=== PATIENT | female | born 1990 | race Caucasian/White ===

== ENCOUNTER 2020-05-16 16:59 | Emergency (ER) | payer MEDICAID ==
[2020-05-16 17:36] VITALS: BP 132/78; PULSE 101
--- NOTE | 2020-05-16 18:14 | EDM.PDOC ---
ED HPI GENERAL MEDICAL PROBLEM - General Chief Complaint: Gastrointestinal Problem Stated Complaint: food posioning a couple days ago not feeling good Time Seen by Provider: 05/16/20 18:06 Source of Information: Reports: Patient, RN Notes Reviewed History Limitations: Reports: No Limitations - History of Present Illness INITIAL COMMENTS - FREE TEXT/NARRATIVE: 29-year-old female presents emergency department a complaint of crampy abdominal pain, she states she had eaten out for dinner a couple of days ago approximately 30 minutes after eating she got a bad case nausea vomiting diarrhea fevers chills crampy abdominal pain. 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: Psychiatric History: Reports: Depression - Infectious Disease History Infectious Disease History: Reports: Hepatitis C - Past Surgical History HEENT Surgical History: Reports: Adenoidectomy, Tonsillectomy Social & Family History - Tobacco Use Tobacco Use Status *Q: Current Every Day Tobacco User Years of Tobacco use: 15 Packs/Tins Daily: 0.5 - Caffeine Use Caffeine Use: Reports: Coffee - Recreational Drug Use Recreational Drug Use: No ED ROS GENERAL - Review of Systems Review Of Systems: See Below Constitutional: Reports: Fever, Chills HEENT: Reports: No Symptoms Respiratory: Reports: No Symptoms Cardiovascular: Reports: No Symptoms GI/Abdominal: Reports: Abdominal Pain, Diarrhea, Nausea, Vomiting : Reports: No Symptoms ED EXAM, GI/ABD - Physical Exam Exam: See Below Exam Limited By: No Limitations General Appearance: Alert, WD/WN, No Apparent Distress Respiratory/Chest: No Respiratory Distress, Lungs Clear, Normal Breath Sounds, No Accessory Muscle Use, Chest Non-Tender Cardiovascular: Regular Rate, Rhythm, No Murmur GI/Abdominal Exam: Soft, Non-Tender Course - Vital Signs Last Recorded V/S: Last Vital Signs Temp 97.4 F 05/16/20 17:54 Pulse 101 H 05/16/20 17:54 Resp 16 05/16/20 17:54 BP 132/78 05/16/20 17:54 Pulse Ox 97 05/16/20 17:54 - Orders/Labs/Meds Orders: Active Orders 24 hr Category Date Time Status Abdomen 1V Upright [CR] Urgent Exams 05/16/20 18:10 Taken Labs: Laboratory Tests 05/16/20 05/16/20 05/16/20 Range/Units 18:19 18:19 18:19 WBC 3.9 L (4.5-11.0) K/uL RBC 4.35 (3.30-5.50) M/uL Hgb 12.1 (12.0-15.0) g/dL Hct 37.4 (36.0-48.0) % MCV 86 (80-98) fL MCH 28 (27-31) pg MCHC 32 (32-36) % Plt Count 280 (150-400) K/uL Neut % (Auto) 59 (36-66) % Lymph % (Auto) 30 (24-44) % Davis % (Auto) 10 H (2-6) % Eos % (Auto) 1 L (2-4) % Baso % (Auto) 1 (0-1) % Sodium 143 (140-148) mmol/L Potassium 3.7 (3.6-5.2) mmol/L Chloride 105 (100-108) mmol/L Carbon Dioxide 27 (21-32) mmol/L Anion Gap 11.4 (5.0-14.0) mmol/L BUN 13 D (7-18) mg/dL Creatinine 0.7 (0.6-1.0) mg/dL Est Cr Clr Drug Dosing 130.15 mL/min Estimated GFR (MDRD) > 60 (>60) Glucose 90 (74-106) mg/dL Lactic Acid 0.8 (0.4-2.0) mmol/L Calcium 8.7 (8.5-10.1) mg/dL Total Bilirubin 0.1 L D (0.2-1.0) mg/dL AST 25 (15-37) U/L ALT 46 (12-78) U/L Alkaline Phosphatase 97 (46-116) U/L Total Protein 7.0 (6.4-8.2) g/dL Albumin 3.5 (3.4-5.0) g/dL Globulin 3.5 (2.3-3.5) g/dL Albumin/Globulin Ratio 1.0 L (1.2-2.2) Lipase 64 L (73-393) U/L Urine Color (YELLOW) Urine Appearance (CLEAR) Urine pH (5.0-8.0) Ur Specific Henderson (1.008-1.030) Urine Protein (NEGATIVE) mg/dL Urine Glucose (UA) (NEGATIVE) mg/dL Urine Ketones (NEGATIVE) mg/dL Urine Occult Blood (NEGATIVE) Urine Nitrite (NEGATIVE) Urine Bilirubin (NEGATIVE) Urine Urobilinogen (0.2-1.0) EU/dL Ur Leukocyte Esterase (NEGATIVE) Urine RBC (0-5) Urine WBC (0-5) Ur Epithelial Cells Amorphous Sediment Urine Bacteria Urine Mucus 05/16/20 Range/Units 19:31 WBC (4.5-11.0) K/uL RBC (3.30-5.50) M/uL Hgb (12.0-15.0) g/dL Hct (36.0-48.0) % MCV (80-98) fL MCH (27-31) pg MCHC (32-36) % Plt Count (150-400) K/uL Neut % (Auto) (36-66) % Lymph % (Auto) (24-44) % Davis % (Auto) (2-6) % Eos % (Auto) (2-4) % Baso % (Auto) (0-1) % Sodium (140-148) mmol/L Potassium (3.6-5.2) mmol/L Chloride (100-108) mmol/L Carbon Dioxide (21-32) mmol/L Anion Gap (5.0-14.0) mmol/L BUN (7-18) mg/dL Creatinine (0.6-1.0) mg/dL Est Cr Clr Drug Dosing mL/min Estimated GFR (MDRD) (>60) Glucose (74-106) mg/dL Lactic Acid (0.4-2.0) mmol/L Calcium (8.5-10.1) mg/dL Total Bilirubin (0.2-1.0) mg/dL AST (15-37) U/L ALT (12-78) U/L Alkaline Phosphatase (46-116) U/L Total Protein (6.4-8.2) g/dL Albumin (3.4-5.0) g/dL Globulin (2.3-3.5) g/dL Albumin/Globulin Ratio (1.2-2.2) Lipase (73-393) U/L Urine Color Yellow (YELLOW) Urine Appearance Slightly cloudy A (CLEAR) Urine pH 6.5 (5.0-8.0) Ur Specific Henderson >= 1.030 (1.008-1.030) Urine Protein Negative (NEGATIVE) mg/dL Urine Glucose (UA) Negative (NEGATIVE) mg/dL Urine Ketones Negative (NEGATIVE) mg/dL Urine Occult Blood Negative (NEGATIVE) Urine Nitrite Negative (NEGATIVE) Urine Bilirubin Negative (NEGATIVE) Urine Urobilinogen 0.2 (0.2-1.0) EU/dL Ur Leukocyte Esterase Negative (NEGATIVE) Urine RBC 0-5 (0-5) Urine WBC 0-5 (0-5) Ur Epithelial Cells Rare Amorphous Sediment Not seen Urine Bacteria Rare Urine Mucus Moderate Meds: Medications Discontinued Medications Generic Name Dose Route Start Last Admin Trade Name Freq PRN Reason Stop Dose Admin Hyoscyamine 0.125 mg 05/16/20 18:11 05/16/20 18:19 Hyoscyamine 0.125 Mg Tab.Sl SL 05/16/20 18:12 0.125 mg ONETIME ONE Administration Departure - Departure Time of Disposition: 20:12 Disposition: Home, Self-Care 01 Condition: Fair Clinical Impression: Gastroenteritis - Discharge Information Instructions: Viral Gastroenteritis, Adult, [id number] Referrals: PCP,None [Primary Care Provider] - Forms: ED Department Discharge Additional Instructions: Continue with symptomatic care, try simethicone for abdominal relief, please followup with your primary care provider in 3-5 days if not better, please call return to the emergency department with worsening of symptoms. Sepsis Event Note (ED) - Evaluation Sepsis Screening Result: No Definite Risk - Focused Exam Vital Signs: Vital Signs Temp Pulse Resp BP Pulse Ox 05/16/20 17:54 97.4 F 101 H 16 132/78 97 05/16/20 17:30 97.4 F 101 H 16 132/78 97 - My Orders Last 24 Hours: My Active Orders 05/16/20 18:10 Abdomen 1V Upright [CR] Urgent - Assessment/Plan Last 24 Hours: My Active Orders 05/16/20 18:10 Abdomen 1V Upright [CR] Urgent Plan: Assessment Acuity = acute Site and laterality = gastroenteritis Etiology = unknown Manifestations = nausea vomiting diarrhea now resolved abdominal bloating Location of injury = Home Lab values = CBC CMP unremarkable plain film of the abdomen shows nonspecific bowel gas pattern official read radiologist pending Plan Did review lab work x-ray results with her she is going to try simethicone at home follow-up primary care 3 to 5 days if not better This note was dictated using [employer] voice recognition software please call with any questions on syntax or grammar.
[2020-05-16] MEDS: Hyoscyamine 0.125 MG Tab.SL SL ONE (18:19)
--- NOTE | 2020-05-17 08:55 | CR ---
Abdomen 1V Upright CLINICAL HISTORY: Abdominal pain FINDINGS: No free air is identified. Small intestinal configuration is nonacute. There is gas and feces in the colon Impression: Nonacute intestinal gas pattern
== END 2020-05-16 20:38 | disposition home or self-care (01) ==
LOC: JP.ED 16:59
DX: K52.9 Noninfective gastroenteritis and colitis, unspecified (principal); Z72.0 Tobacco use; Z88.0 Allergy status to penicillin; Z88.8 Allergy status to other drugs, medicaments and biological substances
CPT/HCPCS: 36415; 74018; 80053; 81001; 83605; 83690; 85025; 99283; 99284; A9270

== ENCOUNTER 2020-12-26 19:28 | Emergency (ER) | payer MEDICAID ==
[2020-12-26 20:01] VITALS: BP 115/52; PULSE 112
--- NOTE | 2020-12-26 20:08 | EDM.PDOC ---
ED HPI GENERAL MEDICAL PROBLEM - General Chief Complaint: Head Injury Stated Complaint: HEAD INJURY WITH LOSS OF CONCIOUSNESS Time Seen by Provider: 12/26/20 20:08 Source of Information: Reports: Patient History Limitations: Reports: No Limitations - History of Present Illness INITIAL COMMENTS - FREE TEXT/NARRATIVE: Patient presents to emergency room secondary to concern about head injury. Patient states that she went to sit down on a wooden chair in her kitchen when it broke underneath of her she fell back hitting her head on the corner of a cabinet she feels like she had a brief loss of consciousness she has a headache and some nausea she denies any lightheaded dizziness visual changes or concerns otherwise. She was observed to be ambulatory in the emergency room from the waiting room to her exam room without any difficulty states that she does have a lump on the back of her head that is somewhat tender in nature PMH--depression/anxiety, bipolar, mood disorder, ADHD, PTSD Meds--prozac, wellbutrin, adderal, lamictal, cloinipin prn Allergies--amox, trileptal Tob--former EtOH/Drugs--denies Patient reports having had COVID infection in Dec 2019, she has not received the COVID immunization Onset: Today Onset Time: 16:30 Head Pain Score (Numeric/FACES): 4 - Related Data Allergies Allergy/AdvReac Type Severity Reaction Status Date / Time amoxicillin [Amoxicillin] Allergy Severe Hives Verified 12/26/20 20:02 oxcarbazepine Allergy Cannot Verified 12/26/20 20:02 [From Trileptal] Remember Home Meds: Home Meds FLUoxetine HCl [Prozac] 3 tab PO DAILY 12/19/12 [History] Dextroamphetamine/Amphetamine [Adderall 10 mg Tablet] 1 tab PO ASDIRECTED 12/26/20 [History] buPROPion HCL [Bupropion Xl] 1 tab PO DAILY 12/26/20 [History] clonazePAM [Clonazepam] 1 tab PO ASDIRECTED PRN 12/26/20 [History] lamoTRIgine [Lamotrigine ER] 1 tab PO DAILY 12/26/20 [History] 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 Constitutional: Reports: No Symptoms HEENT: Reports: No Symptoms. Denies: Vertigo, Vision Change Respiratory: Reports: No Symptoms Cardiovascular: Reports: No Symptoms Endocrine: Reports: No Symptoms GI/Abdominal: Reports: Nausea. Denies: Vomiting : Reports: No Symptoms Musculoskeletal: Reports: No Symptoms Skin: Reports: No Symptoms Neurological: Reports: Headache. Denies: Confusion, Dizziness, Numbness, Seizure, Syncope, Tingling, Trouble Speaking, Difficulty Walking, Weakness, Change in Speech, Gait Disturbance Psychiatric: Reports: No Symptoms Hematologic/Lymphatic: Reports: No Symptoms Immunologic: Reports: No Symptoms ED EXAM, HEAD INJURY - Physical Exam Exam: See Below Exam Limited By: No Limitations General Appearance: Alert, WD/WN, No Apparent Distress Head: Scalp Tenderness (posterior occipital tenderness with mild swelling) Nexus Criteria: No: Posterior, Midline Cervical Tenderness, Evidence of Into xication, Altered Level of Consciousness, Focal Neurological Deficit, Painful Distraction Injuries Eyes: Bilateral Eye: EOMI, Normal Inspection, PERRL Ears: Normal External Exam, Normal Canal, Hearing Grossly Normal, Normal TMs Nose: Normal Inspection Throat/Mouth: Normal Inspection, Normal Lips, Normal Oropharynx, Normal Voice, No Airway Compromise Neck: Non-Tender, Full Range of Motion, Normal Alignment, Normal Inspection Respiratory: No Respiratory Distress, Lungs Clear, Normal Breath Sounds, No Accessory Muscle Use Cardiovascular: Normal Peripheral Pulses, Regular Rate, Rhythm, No Edema, No Murmur GI/Abdominal Exam: Normal Bowel Sounds, Soft (Female) Exam: Deferred Rectal (Female) Exam: Deferred Back Exam: Normal Inspection, Full Range of Motion Extremities: Normal Inspection, Normal Range of Motion, No Pedal Edema, Normal Capillary Refill Neurologic: head transfer clerk II-XII nml As Tested, No Motor/Sensory Deficits, Alert, Normal Mood/Affect, Oriented x 3. No: Abnormal head transfer clerk II-XII, Abnormal Gait, Aphasia, Facial Droop, Motor Weakness, Sensory Deficit Skin: Normal Color, Warm/Dry - [place] Score Best Eye Response (Cornel): (4) Open Spontaneously Best Verbal Response (Cornel): (5) Oriented Best Motor Response (Cornel): (6) Obeys Commands Course - Vital Signs Text/Narrative:: Discussed with patient home care for head injury to include observing for any behavior changes headache unrelieved by medications intractable nausea unrelieved by medication provided in the emergency room tonight. Discussed with her brain rest to include no excessive TV reading computer or phone usage. Did discuss that headache and nausea may last for several days to several weeks that it was a difficult to predict if she has any further concerns or questions and follow-up with primary care provider return to the emergency room for further evaluation of left understanding from plan of care ready for discharge Last Recorded V/S: Last Vital Signs Temp 97.9 F 12/26/20 20:01 Pulse 112 H 12/26/20 20:01 Resp 16 12/26/20 20:01 BP 115/52 L 12/26/20 20:01 Pulse Ox 98 12/26/20 20:01 Departure - Departure Time of Disposition: 20:35 Disposition: Home, Self-Care 01 Condition: Good Clinical Impression: Concussion with brief loss of consciousness, Headache, Nausea, Scalp contusion - Discharge Information *PRESCRIPTION DRUG MONITORING PROGRAM REVIEWED*: Not Applicable *COPY OF PRESCRIPTION DRUG MONITORING REPORT IN PATIENT NICKY: Not Applicable Instructions: Head Injury, Adult, [id number], Facial or Scalp Contusion, [id number], Post-Concussion Syndrome, [id number] Referrals: Lucia Ayala PA-C [Primary Care Provider] - Forms: ED Department Discharge Additional Instructions: As discussed if you have any change of behavior increasing irritability headache unrelieved by acetaminophen (Tylenol) vomiting unrelieved by ondasetron (Zofran) gait problems speech problems or visual changes or concerns otherwise and please return to the emergency room for reevaluation As discussed you may have headache nausea as well as develop any lightheaded and dizziness secondary to head injury/concussion. It is recommended that until symptoms have completely resolved the you limit TV use computer use phone use reading allowing your brain to rest Follow-up with your primary care provider/clinic for any further concerns oth erwise Sepsis Event Note (ED) - Focused Exam Vital Signs: Vital Signs Temp Pulse Resp BP Pulse Ox 12/26/20 20:01 97.9 F 112 H 16 115/52 L 98
[2020-12-26] MEDS ORDERED: Ondansetron 4 MG Tab.DIS PO ONE (20:31)
== END 2020-12-26 20:48 | disposition home or self-care (01) ==
LOC: JP.ED 19:28
DX: S06.0X9A Concussion with loss of consciousness of unspecified duration, initial encounter (principal); S00.03XA Contusion of scalp, initial encounter; Z88.0 Allergy status to penicillin; Z88.8 Allergy status to other drugs, medicaments and biological substances; Z87.891 Personal history of nicotine dependence; W07.XXXA Fall from chair, initial encounter; Y92.000 Kitchen of unspecified non-institutional (private) residence as the place of occurrence of the external cause
CPT/HCPCS: 99283

== ENCOUNTER 2020-12-30 10:59 | Emergency (ER) | payer MEDICAID ==
[2020-12-30 11:14] VITALS: BP 127/80; PULSE 97
--- NOTE | 2020-12-30 11:19 | EDM.PDOC ---
ED HPI GENERAL MEDICAL PROBLEM - General Chief Complaint: Upper Extremity Injury/Pain Stated Complaint: RIGHT SHOULDER PAIN Time Seen by Provider: 12/30/20 11:19 Source of Information: Reports: Patient, RN Notes Reviewed History Limitations: Reports: No Limitations - History of Present Illness INITIAL COMMENTS - FREE TEXT/NARRATIVE: Domonique presents today with complaints of right shoulder pain for the past 7 to 8 months with recent significant worsening the past 2 days. She states she has been helping with wood, getting hunting stuff ready and all of a sudden she has significant pain. She also reports she has two young children that she will lift. She denies acute injury, trauma, fever, chills, nausea, vomiting, change in bowel/bladder or other concerns. Hysterectomy 2 weeks ago - recovery is going well. Partial rotator cuff tear in the past that healed up with use of physical therapy. - Related Data Allergies Allergy/AdvReac Type Severity Reaction Status Date / Time amoxicillin [Amoxicillin] Allergy Severe Hives Verified 12/30/20 11:13 oxcarbazepine Allergy Cannot Verified 12/30/20 11:13 [From Trileptal] Remember Home Meds: Home Meds FLUoxetine HCl [Prozac] 3 tab PO DAILY 12/19/12 [History] Dextroamphetamine/Amphetamine [Adderall 10 mg Tablet] 1 tab PO ASDIRECTED 12/26 [History] buPROPion HCL [Bupropion Xl] 1 tab PO DAILY 12/26/20 [History] clonazePAM [Clonazepam] 1 tab PO ASDIRECTED PRN 12/26/20 [History] lamoTRIgine [Lamotrigine ER] 1 tab PO DAILY 12/26/20 [History] Past Medical History HEENT History: Reports: None Genitourinary History: Reports: None 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 History: Reports: Other (See Below) Neurological History: Reports: Concussion Psychiatric History: Reports: Depression - Infectious Disease History Infectious Disease History: Reports: Hepatitis C - Past Surgical History Head Surgeries/Procedures: Reports: None HEENT Surgical History: Reports: Adenoidectomy, Tonsillectomy Female Surgical History: Reports: Hysterectomy Neurological Surgical History: Reports: None Dermatological Surgical History: Reports: None Social & Family History - Caffeine Use Caffeine Use: Reports: Coffee, Energy Drinks, Soda Review of Systems - Review of Systems Review Of Systems: See Below Constitutional: Reports: No Symptoms Eyes: Reports: No Symptoms Ears: Reports: No Symptoms Nose: Reports: No Symptoms Mouth/Throat: Reports: No Symptoms Respiratory: Reports: No Symptoms Cardiovascular: Reports: No Symptoms GI/Abdominal: Reports: No Symptoms Genitourinary: Reports: No Symptoms Musculoskeletal: Reports: Shoulder Pain (right shoulder pain for 2 days 7/10 with movement, 4/10 while resting. ) Skin: Reports: No Symptoms Neurological: Reports: No Symptoms Psychiatric: Reports: No Symptoms ED EXAM, GENERAL - Physical Exam Exam: See Below Exam Limited By: No Limitations General Appearance: Alert, WD/WN, No Apparent Distress Head: Atraumatic, Normocephalic Respiratory/Chest: No Respiratory Distress, Lungs Clear, Normal Breath Sounds, No Accessory Muscle Use, Chest Non-Tender. No: Crackles, Rales, Rhonchi, Wheezing, Stridor, Accessory Muscle Use, Retractions Cardiovascular: Normal Peripheral Pulses, Regular Rate, Rhythm, No Edema, No Gallop, No Murmur, No Rub Peripheral Pulses: 4+: Radial (L), Radial (R) Back Exam: Normal Inspection, Full Range of Motion, Muscle Spasm (right trapezius). No: CVA Tenderness (R), CVA Tenderness (L) Extremities: No Pedal Edema, Normal Capillary Refill, Limited Range of Motion, Other (decreased ROM with active and passive due to pain, not able to raise right arm due to shoulder pain. Tender over AC joint. Unable to abduct right arm due to pain. ). No: Joint Swelling, Increased Warmth, Mottled, Redness Neurological: Alert, Oriented, CN II-XII Intact, Normal Cognition, Normal Gait, Normal Reflexes, No Motor/Sensory Deficits Psychiatric: Normal Affect, Normal Mood Skin Exam: Warm, Dry, Intact, Normal Color, No Rash. No: Ecchymosis, Erythema, Increased Warmth, Petechiae, Wound/Incision Lymphatic: No Adenopathy Course - Vital Signs Last Recorded V/S: Last Vital Signs Temp 36.4 C 12/30/20 11:14 Pulse 97 12/30/20 11:14 Resp 16 12/30/20 11:14 BP 127/80 12/30/20 11:14 Pulse Ox 97 12/30/20 11:14 - Orders/Labs/Meds Orders: Active Orders 24 hr Category Date Time Status Notify Provider Consults [RC] ASDIRECTED Care 12/30/20 12:17 Ordered Consult to Orthopedics [CONS] Routine Cons 12/30/20 12:16 Ordered Shoulder Comp Rt [CR] Stat Exams 12/30/20 11:31 Taken Meds: Medications Discontinued Medications Generic Name Dose Route Start Last Admin Trade Name Corrie PRN Reason Stop Dose Admin Ketorolac Tromethamine 30 mg 12/30/20 11:31 12/30/20 11:40 Ketorolac 30 Mg/Ml Sdv IM 12/30/20 11:32 30 mg ONETIME ONE Administration - Radiology Interpretation Free Text/Narrative:: Right shoulder x-ray wet read, reviewed. No acute findings noted. - Re-Assessments/Exams Free Text/Narrative Re-Assessment/Exam: 12/30/20 11:50 Discussed x-ray, assessment. Patient would like to follow up with Dr. Bernstein. Referral placed, ortho card provided. She can take naproxen every 12 hours for pain, acetaminophen every 8 hours, rest, ice, elevate, use sling and lidocaine patches as directed. Patient in agreement with plan. Departure - Departure Time of Disposition: 11:52 Disposition: Home, Self-Care 01 Condition: Good Clinical Impression: Strain of right shoulder - Discharge Information *PRESCRIPTION DRUG MONITORING PROGRAM REVIEWED*: Not Applicable *COPY OF PRESCRIPTION DRUG MONITORING REPORT IN PATIENT NICKY: Not Applicable Instructions: How to use a Sling, [id number], Shoulder Pain, [id number] Referrals: Lucia Ayala PA-C [Primary Care Provider] - Forms: ED Department Discharge Additional Instructions: You have been evaluated and treated for right shoulder pain. X-ray does not show any acute findings. Referral placed, ortho card provided. She can take naproxen every 12 hours for pain, acetaminophen every 8 hours, rest, ice, elevate, use sling and lidocaine patches as directed. Return as needed. Follow up with primary and orthopedic. Sepsis Event Note (ED) - Evaluation Sepsis Screening Result: No Definite Risk - Focused Exam Vital Signs: Vital Signs Temp Pulse Resp BP Pulse Ox 12/30/20 11:14 36.4 C 97 16 127/80 97 12/30/20 11:12 36.4 C 97 16 127/80 97 - My Orders Last 24 Hours: My Active Orders 12/30/20 11:31 Shoulder Comp Rt [CR] Stat 12/30/20 12:16 Consult to Orthopedics [CONS] Routine 12/30/20 12:17 Notify Provider Consults [RC] ASDIRECTED - Assessment/Plan Last 24 Hours: My Active Orders 12/30/20 11:31 Shoulder Comp Rt [CR] Stat 12/30/20 12:16 Consult to Orthopedics [CONS] Routine 12/30/20 12:17 Notify Provider Consults [RC] ASDIRECTED Assessment:: Strain of right shoulder Plan: Patient evaluated and treated for right shoulder pain. X-ray does not show any acute findings. Referral placed, ortho card provided. She can take naproxen every 12 hours for pain, acetaminophen every 8 hours, rest, ice, elevate, use sling and lidocaine patches as directed. Return as needed. Follow up with primary and orthopedic.
[2020-12-30] MEDS ORDERED: Ketorolac 30 MG/ML SDV IM ONE (11:31)
--- NOTE | 2021-01-01 09:20 | CR ---
Shoulder Comp Rt CLINICAL HISTORY: Pain and decreased range of motion FINDINGS: There is no acute fracture or dislocation in the right shoulder. Articular surfaces are smooth Impression: Negative
== END 2020-12-30 12:22 | disposition home or self-care (01) ==
LOC: JP.ED 10:59
DX: S46.911A Strain of unspecified muscle, fascia and tendon at shoulder and upper arm level, right arm, initial encounter (principal); Z88.0 Allergy status to penicillin; Z88.8 Allergy status to other drugs, medicaments and biological substances; X50.0XXA Overexertion from strenuous movement or load, initial encounter
CPT/HCPCS: 73030; 96372; 99283; J1885

== ENCOUNTER 2021-04-14 10:24 | Emergency (ER) | payer MEDICAID ==
[2021-04-14 10:52] VITALS: BP 133/75; PULSE 98
[2021-04-14 12:30] LABS: CORONAVIRUS COVID-19 NAA POSITIVE (NEGATIVE)
== END 2021-04-14 13:00 | disposition home or self-care (01) ==
LOC: JP.ED 10:24
DX: U07.1 COVID-19 (principal); Z88.0 Allergy status to penicillin; Z88.8 Allergy status to other drugs, medicaments and biological substances
CPT/HCPCS: 0241U; 99282; 99284